=== PATIENT | female | born 1980 | race Two or more races ===

== ENCOUNTER 2019-04-16 12:49 | Emergency (ER) | payer SELFPAY ==
[2019-04-16 13:00] VITALS: TEMP 97.4; BMI 27.3
--- NOTE | 2019-04-16 13:19 | PDOC ---
History of Present Illness - General Chief Complaint: Pain, Acute Stated Complaint: EXTREME LWR BACK PAIN Time Seen by Provider: 04/16/19 13:18 - History of Present Illness Initial Comments: 04/16/19 14:04 38 y/o F hx of pancreatitis,Asthma, cholecystectomy, kidney stones, presents to the ER with 3 days of left sided flank and abdominal pain. Pain feels like throbbing pain radiating to her left groin and left flank. Pain began gradually 3 days ago and has gradually increased. She denies any relieving or exacerbating factors. She has had nausea with no vomiting. She denies fevers, chills, vomiting, bloody stools, diarrhea, or possibility or pregancy. She is unable to answer for certain, if she has had any dysuria or hematuria. Past History - Past Medical History Allergies/Adverse Reactions: Allergies Allergy/AdvReac Type Severity Reaction Status Date / Time Penicillins Allergy Intermediate Hives Verified 04/16/19 13:00 Home Medications: Ambulatory Orders Albuterol Sulfate Inhaler - [Ventolin HFA Inhaler -] 2 inh PO Q4H PRN #1 inh Fluticasone Propionate [Flovent Hfa] 110 mcg IH BID #1 aer.w.adap 02/27/14 Erythromycin [Brant-Tab -] 500 mg NR ONCE 06/10/14 Ibuprofen [Motrin -] 600 mg PO TID #10 tablet 06/11/14 Sulfamethoxazole/Trimethoprim [Bactrim Ds -] 1 tab PO BID 14 Days #28 tablet 02/23 Asthma: Yes COPD: No GI Disorders: Yes (pancreatitis, KIDNEY STONE) - Surgical History Cholecystectomy: Yes - Immunization History Immunization Up to Date: Yes - Psycho Social/Smoking Cessation Hx Smoking Status: Yes Smoking History: Current every day smoker Years of Tobacco Use: 16 Have you smoked in the past 12 months: Yes Number of Cigarettes Smoked Daily: 20 Information on smoking cessation initiated: Yes 'Breaking Loose' booklet given: 02/26/14 Hx Alcohol Use: No Drug/Substance Use Hx: No Substance Use Type: None Review of Systems - Review of Systems Constitutional: No: Chills, Fever HEENTM: No: Eye Pain, Blurred Vision Respiratory: No: Cough, Shortness of Breath Cardiac (ROS): No: Chest Pain, Syncope : No: Burning, Dysuria Musculoskeletal: Yes: Back Pain. No: Muscle Weakness Integumentary: No: Bruising, Change in Color Neurological: No: Headache, Numbness *Physical Exam - Vital Signs Last Vital Signs Temp Pulse Resp BP Pulse Ox 97.4 F L 79 18 161/96 99 04/16/19 12:56 04/16/19 12:56 04/16/19 12:56 04/16/19 12:56 04/16/19 12:56 - Physical Exam 04/16/19 14:17 PE: GENERAL: Awake, alert, and fully oriented, uncomfortable and weeping HEAD: No signs of trauma, normocephalic, atraumatic EYES: PERRLA, EOMI, sclera anicteric, conjunctiva clear ENT: Auricles normal inspection, hearing grossly normal, nares patent, oropharynx clear without exudates. Moist mucosa NECK: Normal ROM, supple, no lymphadenopathy, JVD, or masses LUNGS: clear to auscultation bilaterally no rales, rhonchi or wheezing. HEART: Regular rate and rhythm, normal S1 and S2, no murmurs, rubs or gallops, peripheral pulses normal and equal bilaterally. ABDOMEN: Soft, LLQ, suprapubic. epigastric and CVA tenderness. no rebound or masses palpated. EXTREMITIES : Normal inspection, Normal range of motion, no edema. No clubbing or cyanosis NEUROLOGICAL: Cranial nerves II through XII grossly intact. Normal speech, no focal sensorimotor deficits SKIN: Warm, Dry, normal turgor, no rashes or lesions noted ED Treatment Course - LABORATORY CBC & Chemistry Diagram: 04/16/19 13:59 04/16/19 13:59 Medical Decision Making - Medical Decision Making 04/16/19 14:20 38 y/o F hx of pancreatitis,Asthma, cholecystectomy, kidney stones, presents to the ER with 3 days of left sided flank and abdominal pain. cbc, cmp, ua, urine culture, ekg, spiral CT, test Meds: tylenol, normal saline 1L, 04/16/19 14:23 meds: ketoralac 30mg IV 04/16/19 14:49 white count wnl serum test negative. 04/16/19 16:38 CT abdomen and pelvis non-obstructing calculi within the lower pole of left kidney no hydronephrosis or obstructive uropathy no free fluid no evidence of acute bony pathology Discharge - Discharge Information Problems reviewed: Yes Clinical Impression/Diagnosis: Pyelonephritis, Flank pain Condition: Improved Disposition: HOME - Admission No - Additional Discharge Information Prescriptions: Sulfamethoxazole/Trimethoprim [Bactrim Ds -] 1 tab PO BID 14 Days #28 tablet - Follow up/Referral Referrals: Maged Meza MD [Staff Physician] - Jonathan Jimenez MD [Staff Physician] - - Patient Discharge Instructions Patient Printed Discharge Instructions: DI for Kidney Infection Additional Instructions: Follow up with your primary doctor within 2-3 days. Follow up with a Urologist this week (we have givem you a list of urologists, but make sure they accept your insurance). Please call as soon as possible for an appointment pharmacy. You have been prescribed antibiotics. Please filler picker the medication as soon as possible and take as directed. Use Motrin (also called Ibuprofen or Advil) 400 mg every 6 hours as needed for pain. If you have any stomach discomfort while taking Motrin, you can use TUMS to help. All of these medications can be purchased without a prescription. Drink plenty of fluids, avoid caffeine & alcohol. You were given a copy of the results from any tests performed today in the Emergency Department which have results available. ? Show these to your doctor(s). Any worsening pain, fever, chills, difficulty urinating, or any other concerns, please see your doctor immediately or return to Emergency Department right away. - Post Discharge Activity
[2019-04-16] MEDS ORDERED: SODIUM CHLORIDE 0.9% 500 ML INFUS.BAG IV ONE (13:39)
[2019-04-16] MEDS ORDERED: ONDANSETRON 4 MG/2 ML VIAL IVPUSH ONE (13:39)
[2019-04-16] MEDS ORDERED: KETOROLAC TROMETHAMINE 30 MG/1 ML VIAL IVPUSH ONE ×2 (13:39→14:22)
[2019-04-16] MEDS ORDERED: ACETAMINOPHEN 1000 MG/100 ML VIAL (NON FORMULARY) IVPB ONE (13:44)
[2019-04-16] MEDS ORDERED: ONDANSETRON 4 MG/2 ML VIAL ONE (13:46)
[2019-04-16] MEDS ORDERED: ACETAMINOPHEN INJECTION 100 ML IVPB ONE (13:46)
[2019-04-16 14:09] LABS: HEMATOCRIT 41.6 % (32.4-45.2); HEMOGLOBIN 13.8 GM/dL (10.7-15.3); MCH 30.9 pg (25.7-33.7); MCHC 33.2 g/dl (32.0-36.0); MEAN CELL VOLUME 93.1 fl (80-96); MEAN PLT VOLUME 9.3 fl (7.5-11.1); PLATELET COUNT 279 K/MM3 (134-434); RBC 4.46 M/mm3 (3.60-5.2); WHITE BLOOD COUNT 8.2 K/mm3 (4.0-10.0)
[2019-04-16] MEDS ORDERED: KETOROLAC TROMETHAMINE 30 MG/1 ML VIAL ONE (14:28)
[2019-04-16 14:33] LABS: BILIRUBIN,TOTAL 0.5 mg/dL (0.2-1); BLOOD UREA NITROGEN 15.8 mg/dL (7-18); CALCIUM 10.6 mg/dL (8.5-10.1); CREATININE 0.9 mg/dL (0.55-1.3); POTASSIUM 4.2 mmol/L (3.5-5.1); TOT PROT 7.4 g/dl (6.4-8.2)
--- NOTE | 2019-04-16 14:35 | PDOC ---
Attending Attestation - Resident Resident Name: Marcelo York - ED Attending Attestation I have performed the following: I have examined & evaluated the patient, The case was reviewed & discussed with the resident, I agree w/resident's findings & plan - HPI HPI: 04/16/19 14:33 38-year-old female with history of nephrolithiasis, once requiring lithotripsy and stent last year, presents now with 3 days of progressive left flank pain worsened acutely this morning. Patient with dull sharp pain in her left flank over the last 3 days, this morning was awoken from sleep with a much sharper pain radiating to the left groin, no associated dysuria or gross hematuria but reporting nausea without vomiting, no measured fevers. - Physicial Exam PE: 04/16/19 14:33 Afebrile, vital signs stable Alert in stretcher, uncomfortable and writhing Heart is regular, lungs are clear Abdomen is soft/nondistended, tenderness to the left pelvis and left lateral abdomen with positive left CVA tenderness, no rash, abdominal exam is otherwise benign.No palpable masses/nodes/hernia. - Medical Decision Making 04/16/19 14:34 38-year-old female with history of nephrolithiasis presents with progressive left flank pain over the last 3 days, exam localizes to left flank, presentation seems consistent with acute nephrolithiasis. Afebrile, hemodynamically stable. Check labs, urinalysis Pain control CT imaging given duration of symptoms Reassess Heart Score/ECG Review #1 ECG reviewed & interpreted by me at: 14:27 General ECG Interpretation: Sinus Rhythm, Normal Rate (59), Normal Intervals ( qtc 401), No acute ischemic changes
[2019-04-16 15:02] LABS: EPI CELLS 23.9 /HPF (0-5/HPF); HYALINE CASTS 18 /lpf (0-8); URINE APPEARANCE CLOUDY; URINE BACTERIA 355.5 /hpf (NEGATIVE); URINE BILIRUBIN NEGATIVE (NEGATIVE); URINE COLOR YELLOW; URINE GLUCOSE (UA) NEGATIVE (NEGATIVE); URINE KETONE NEGATIVE (NEGATIVE); URINE LEUK ESTERASE NEGATIVE (NEGATIVE); URINE NITRITE NEGATIVE (NEGATIVE); URINE PROTEIN 1+ (NEGATIVE); URINE UROBILINOGEN 0.2 mg/dL (0.2-1.0)
[2019-04-16 15:10] LABS: URINE RBC 9.6 /hpf (0-4); URINE WBC 17.7 /hpf (0-5)
[2019-04-16 17:37] VITALS: BP 127/81; PULSE 66
--- NOTE | 2019-04-17 10:27 | EKG ---
Test Reason : Blood Pressure : / mmHG Vent. Rate : 059 BPM Atrial Rate : 059 BPM P-R Int : 120 ms QRS Dur : 090 ms QT Int : 406 ms P-R-T Axes : 050 013 007 degrees QTc Int : 401 ms SINUS BRADYCARDIA OTHERWISE NORMAL ECG WHEN COMPARED WITH ECG OF 20-FEB-2005 23:55, NONSPECIFIC T WAVE ABNORMALITY NOW EVIDENT IN ANTERIOR LEADS Confirmed by JULIANA GARCIA, ZAINA ([id number]) on 04/17/2019 10:27:30 AM Referred By: Confirmed By:ZAINA ANDREWS MD
== END 2019-04-16 17:37 | disposition home or self-care (01) ==
LOC: JER 12:49
PROC: 3E033NZ Introduction of Analgesics, Hypnotics, Sedatives into Peripheral Vein, Percutaneous Approach (ICD-10-PCS; principal; 2019-04-16)
PROC: 3E0333Z Introduction of Anti-inflammatory into Peripheral Vein, Percutaneous Approach (ICD-10-PCS; 2019-04-16)
PROC: 3E033GC Introduction of Other Therapeutic Substance into Peripheral Vein, Percutaneous Approach (ICD-10-PCS; 2019-04-16)
DX: N12 Tubulo-interstitial nephritis, not specified as acute or chronic (principal); R10.32 Left lower quadrant pain; Z88.0 Allergy status to penicillin; J45.909 Unspecified asthma, uncomplicated; N20.0 Calculus of kidney; K85.90 Acute pancreatitis without necrosis or infection, unspecified; F17.210 Nicotine dependence, cigarettes, uncomplicated
CPT/HCPCS: 36415; 74176-TC; 80053; 81003; 83690; 84703; 85027; 87086; 93005; 93010; 99282-25; J0131